=== PATIENT | female | born 1995 | race American Indian/Alaskan Native ===

== ENCOUNTER 2019-01-15 14:00 | Emergency (ER) | payer OTHER ==
[2019-01-15] MEDS ORDERED: IBUPROFEN 600 MG TAB PO ONE (14:15)
[2019-01-15 14:16] VITALS: BP 120/75
--- NOTE | 2019-01-15 14:16 | Event Note ---
ED Screening Note Date of service: 01/15/19 Time: 14:12 ED Screening Note: 24 y/o having COKER 3 days, nasal congestion sore throat time 1 day, rash under breast. Rash under breast times 2 weeks. No fever. This initial assessment/diagnostic orders/clinical plan/treatment(s) is/are subject to change based on patients health status, clinical progression and re- assessment by fellow clinical providers in the ED. Further treatment and workup at subsequent clinical providers discretion. Patient/guardian urged not to elope from the ED as their condition may be serious if not clinically assessed and managed. Initial orders include:
--- NOTE | 2019-01-15 14:22 | Emergency Department Report ---
Minor Respiratory - HPI Chief Complaint: Headache Stated Complaint: HEADACHE/FEVER/CHILLS/RASH UNDER BREAST/THROAT JEANA Time Seen by Provider: 01/15/19 14:12 Duration: 1 Day Pain Location: Throat, Other (COKER) Minor Respiratory: Yes Rhinorrhea, Yes Sore Throat, Yes Able to Tolerate Fluids, Yes Cough, No Ear Pain, No Sick Contacts, No Hemoptysis, No Chest Pain, No Shortness of Breath, No Fever Other History: 24 y/o having COKER 3 days, nasal congestion sore throat time 1 day, rash under breast. Rash under breast times 2 weeks. No fever. PMH of bacterial meningitis. ED Review of Systems ROS: Stated complaint: HEADACHE/FEVER/CHILLS/RASH UNDER BREAST/THROAT JEANA Other details as noted in HPI Comment: All other systems reviewed and negative ED Past Medical Hx - Past Medical History Previous Medical History?: Yes Additional medical history: Hx of bacterial meningitis - Surgical History Past Surgical History?: Yes Additional Surgical History: ACL repair - Social History Smoking Status: Never Smoker Substance Use Type: Alcohol - Medications Home Medications: Home Medications Medication Instructions Recorded Confirmed Last Taken Type Fluticasone Furoate [Flonase 5.9 ml NS QDAY #1 spray.susp 01/15/19 Unknown Rx Sensimist] Ibuprofen [Motrin 600 MG tab] 600 mg PO Q8H PRN #21 tablet 01/15/19 Unknown Rx cephALEXin [Keflex] 500 mg PO Q12HR #20 cap 01/15/19 Unknown Rx Minor Respiratory Exam - Exam General: Vital signs noted. No distress. Alert and acting appropriately. HEENT: Yes Moist Mucous Membranes, No Pharyngeal Erythema, No Pharyngeal Exudates, No Rhinorrhea, No Conjuctival Injection, No Frontal Tenderness, No Maxillary Tenderness Ear: Neither TM Bulge, Neither TM Erythema, Neither EAC Pain, Neither EAC Discharge Neck: Yes Supple, No Adenopathy Lungs: Yes Good Air Exchange, No Wheezes, No Ronchi, No Stridor, No Cough, No Labored Respirations, No Retractions, No Use of Accessory Muscles, No Other Abnormal Lung Sounds Heart: Yes Regular, No Murmur Abdomen: Yes Normal Bowel Sounds, No Tenderness, No Peritoneal Signs Skin: No Rash, No Edema Neurologic: Alert and oriented, no deficits. Musculoskeletal: Unremarkable. ED Course Vital Signs 01/15/19 14:13 Temperature 98.1 F Pulse Rate 101 H Respiratory 16 Rate Blood Pressure 120/75 O2 Sat by Pulse 99 Oximetry ED Medical Decision Making - Medical Decision Making 24 y/o having COKER 3 days, nasal congestion sore throat time 1 day, rash under breast. Rash under breast times 2 weeks. No fever. PMH of bacterial meningitis. Critical care attestation.: If time is entered above; I have spent that time in minutes in the direct care of this critically ill patient, excluding procedure time. ED Disposition Clinical Impression: Sinusitis chronic, frontal Disposition: DC-01 TO HOME OR SELFCARE Is pt being admited?: No Does the pt Need Aspirin: No Condition: Stable Instructions: Sinusitis (ED) Prescriptions: Fluticasone Furoate [Flonase Sensimist] 5.9 ml NS QDAY #1 spray.susp cephALEXin [Keflex] 500 mg PO Q12HR #20 cap Ibuprofen [Motrin 600 MG tab] 600 mg PO Q8H PRN #21 tablet PRN Reason: Pain , Severe (7-10) Referrals: [facility] [Outside] - 3-5 Days [facility] [Outside] - 3-5 Days [facility] [Outside] - 3-5 Days [facility] [Outside] - 3-5 Days Forms: Work/School Release Form(ED)
== END 2019-01-15 14:35 | disposition home or self-care (01) ==
LOC: ED 14:00
DX: J32.1 Chronic frontal sinusitis (principal); Z98.890 Other specified postprocedural states